=== PATIENT | male | born 1960 | race Caucasian/White ===

== ENCOUNTER 2016-08-13 12:34 | Emergency (ER) | payer BC ==
[2016-08-13 13:09] LABS: Urine Bilirubin Negative (NEGATIVE); Urine Ketone 15 mg/dL (NEGATIVE); Urine Nitrite Negative (NEGATIVE); Urine Protein Negative (NEGATIVE); Urine Urobilinogen Normal (NORMAL)
--- NOTE | 2016-08-13 13:24 | ERNOTE ---
ER Male HPI Date of Service: 08/13/16 Stated Complaint: GENITOURINARY Time Seen by Provider: 08/13/16 13:17 Source: patient Exam Limitations: no limitations Immunizations: IMMUNIZATION HX Immunizations Up to Date Yes History of Influenza Vaccine Yes Allergies/Adverse Reactions: Allergies Penicillins Allergy (Verified 08/13/16 13:03) Home Medications: HOME MEDICATIONS Insulin Glargine,Hum.rec.anlog [Lantus] 55 units SC HS 08/13/16 [Last Taken Unknown] Insulin Lispro [Humalog] 0 - 12 units SC ACHS 08/13/16 [Last Taken Unknown] Metformin HCl [Metformin HCl ER] 500 mg PO BID 08/13/16 [Last Taken Unknown] - History of Present Illness Narrative: Pt. comes in with c/o burning and dysuria for two days. Pt. denies any SOB, CP , fever, abd pain, NVD, back pain, headache, decreased eating or drinking, testicular pain, rectal pain or prostate problems. Pt. denies any prehsopital treatment, alleviating factors, or aggravating factors. Review of Systems - Review of Systems Constitutional: Present: no symptoms reported. Absent: recent illness, fever, chills, malaise EYE: Present: no symptoms reported ENT: Present: no symptoms reported Respiratory: Present: no symptoms reported Cardiology: Present: no symptoms reported. Absent: chest pain, palpitations, edema Gastrointestinal/Abdominal: Present: no symptoms reported. Absent: nausea, vomiting, abdominal pain Genitourinary: Present: frequency, pain, dysuria, decreased urinary output. Absent: hematuria, discharge Musculoskeletal: Present: no symptoms reported. Absent: back pain, joint pain Skin: Present: no symptoms reported Neurological: Present: no symptoms reported. Absent: headache, dizziness/light- headedness, numbness, tingling All Other Systems: All systems neg except as marked - Patient's Past Medical History Patient History - Medical: Diabetes Type 2, UTI'S Patient History - Cancer: No Hx of Cancer Patient History - Surgical Procedures: No surgical history - Social History Smoking Status: Current every day smoker Have you smoked in the past 12 months: Yes Do you dip or chew tobacco: No Alcohol Use: heavy Drug Use: none Physical Exam - Physical Exam General Appearance: Present: wd/wn, alert, no apparent distress Eye Exam: Normal inspection: bilateral, PERRL: bilateral, EOMI: bilateral Ears, Nose, Throat: Present: normal ENT inspection, hearing grossly normal, normal pharynx Neck: Present: normal inspection, nontender. Absent: lymphadenopathy (R), lymphadenopathy (L) Respiratory: Present: no respiratory distress, normal breath sounds, no accessory muscle use, chest nontender, lungs clear Cardiovascular/Chest: Present: regular rate, rhythm, no murmur, normal peripheral pulses Gastrointestinal/Abdominal: Present: normal bowel sounds, nontender, nondistended, soft, no organomegaly Male Genitals Exam: Present: normal genitalia, normal prostate, no hernia Back Exam: Present: normal inspection, normal range of motion, no CVA tenderness Neurological Exam: Present: alert, oriented, normal mood/affect, no motor/ sensory deficits, assistance coordinator II-XII nml as tested, normal cerebellar test Skin Exam: Present: normal color, warm/dry. Absent: pallor, skin rash ED Progress - Date and Time Seen: Date and Time: 08/13/16 14:22 Pt. without UTI but pt. with hematuria, normal prostate on exam and decreased urine output am concerned for stone or other renal obstruction. 08/13/16 16:[address] Early and he will see pt. tomorrow in [place] for repeat labs and discuss further treatment. He recommends leaving catheter in place and having pt. drink gatorade to prevent hyponatremia and hypokalemia. - Results and Orders Patient's Lab Results:: I have reviewed the patient's lab results. - Vital Signs Patient's Vital Signs:: I have reviewed the patient's vital signs. Vital Signs: Vital Signs 08/13/16 12:59 Temperature 35.5 C L Pulse Rate 104 H Respiratory 14 Rate Blood Pressure 164/113 O2 Sat by Pulse 98 Oximetry - X-Ray X-Ray #1 X-Ray: abdomen Interpretation: Reviewed by me X-ray Comments: no free air, no significant obstruction or constipation scattered non specific air fluid levels. - Progress/Reassessment Chief Complaint: Urinary Tract Problems Departure Clinical Impression: Urinary obstruction - Departure Disposition: Home self-care Condition: Good Instructions: Acute Urinary Retention, Male Additional Instructions: Please follow up with Dr Early tomorrow in [facility]. Please drink gatorade to rep[lace fluids and electrolytes. Referrals: Juan Early MD [Associate] -
[2016-08-13 14:01] LABS: Urine Appearance Clear; Urine Bacteria 1+; Urine Blood 10 /ul (NEGATIVE); Urine Color Yellow; Urine RBC TRACE /hpf (0-5); Urine WBC None Seen /hpf (0-5)
[2016-08-13 14:39] LABS: Hematocrit 44.9 % (42.0-52.0); Hemoglobin 15.3 gm/dL (13.5-18.0); Red Blood Count 4.99 M/mm3 (4.7-6.0); White Blood Count 8.8 K/mm3 (4.0-10.5)
[2016-08-13 14:40] LABS: Mean Corpuscular Hemoglobin 30.7 pg (27-31); Mean Corpuscular Hgb Conc 34.1 g/dl (32-36); Mean Platelet Volume 11.7 fl (6.0-9.5); Neutrophil # 6.2 K/mm3 (1.3-6.0); Neutrophil % 70.1 % (42-75.0); Platelet Count 270 K/mm3 (150-450); Red Cell Distribution Width 12.9 % (11.5-14.0)
[2016-08-13 14:56] LABS: ALT 19 U/L (19-67); AST 12 U/L (0-48); Albumin * 3.7 gm/dl (3.4-5.0); Alkaline Phosphatase * 118 U/L (50-170); Bilirubin, Total 0.5 mg/dL (0.0-1.1); Blood Urea Nitrogen 22 mg/dL (6-23); Calcium * 9.1 mg/dL (7.9-10.9); Carbon Dioxide 22.1 mmol/L (24-32.6); Chloride 100 mmol/L (97-106); Glucose * 416 mg/dL (70-110); Potassium 4.1 mmol/L (3.4-4.6); Sodium 135 mmol/L (132-142); Total Protein 7.4 gm/dL (6.2-8.2)
[2016-08-13] MEDS ORDERED: NORMAL SALINE 1,000 ML IV ONE (15:01)
[2016-08-13 15:02] LABS: Hemoglobin A1C 11.3 % (4.00-6.0)
[2016-08-13 17:25] VITALS: BP 191/106
== END 2016-08-13 17:25 | disposition home or self-care (01) ==
LOC: ER 12:34
PROC: BT40ZZZ Ultrasonography of Bladder (ICD-10-PCS; principal; 2016-08-13)
PROC: 0T9B70Z Drainage of Bladder with Drainage Device, Via Natural or Artificial Opening (ICD-10-PCS; 2016-08-13)
DX: N13.9 Obstructive and reflux uropathy, unspecified (principal); Z87.440 Personal history of urinary (tract) infections; F17.210 Nicotine dependence, cigarettes, uncomplicated; E11.9 Type 2 diabetes mellitus without complications; Z79.4 Long term (current) use of insulin